=== PATIENT | female | born 2000 | race Hispanic/Latino ===

== ENCOUNTER 2023-04-29 19:00 | Emergency (ER) | payer OTHER ==
[~2023-04-29] VITALS: Ht 154.9 cm; Wt 70.3 kg
[2023-04-29] MEDS ORDERED: 0.9%NACL 1000ML 1,000 ML IV ONE (19:30)
[2023-04-29] MEDS ORDERED: METOCLOPRAMIDE 10 MG/2 ML VIAL IVP ONE (19:30)
[2023-04-29] MEDS ORDERED: FAMOTIDINE 20MG VIAL IV ONE (19:30)
[2023-04-29] MEDS ORDERED: KETOROLAC 30MG VIAL (30MG/ML) IVP ONE (19:30)
[2023-04-29] MEDS ORDERED: DEXAMETHASONE SOD PHOSPHATE 4 MG/ML 1ML VIAL IV ONE (19:30)
[2023-04-29 19:31] LABS: RAPID GROUP A STREP negative (NEGATIVE)
[2023-04-29 19:36] LABS: SARS-CoV-2, RNA, NAAT NEGATIVE SARS CoV-2 (NEGATIVE)
[2023-04-29] MEDS ORDERED: PENI500T2 PO (19:54)
[2023-04-29] MEDS ORDERED: NAPR-1192 PO (19:54)
[2023-04-29 19:57] VITALS: BP 126/71; PULSE 105; RESP 12; O2SAT 98
[2023-04-29 20:06] LABS: INFLUENZA TYPE A NEGATIVE FOR TYPE A (NEGATIVE); INFLUENZA TYPE B NEGATIVE FOR TYPE B (NEGATIVE)
== END 2023-04-29 20:48 | disposition home or self-care (01) ==
LOC: EDH 19:00
DX: J03.90 Acute tonsillitis, unspecified (principal); Z20.822 Contact with and (suspected) exposure to COVID-19
CPT/HCPCS: 99284; 96374; 96375; 87635; 96361; 87880; 87804 ×2; J1100; C9803; J3490; J7030; J2765